=== PATIENT | male | born 1975 | race Two or more races ===

== ENCOUNTER → 2018-01-13 | Outpatient (CLI) | payer BC | LOC: FCPNEURO 21:30 | PROVIDERS: ATTEND Student in an Organized Health Care Education/Training Program | DX: G47.33 Obstructive sleep apnea (adult) (pediatric) (principal) ==

== ENCOUNTER → 2018-02-03 | Outpatient (CLI) | payer BC | LOC: FIMAGING 17:27 | PROVIDERS: ATTEND Family Medicine | DX: M54.5 Low back pain (principal); M54.6 Pain in thoracic spine ==

== ENCOUNTER → 2018-11-03 | Outpatient (CLI) | payer BC | LOC: FIMAGING 16:59 | PROVIDERS: ATTEND Physician Assistant Medical | DX: R07.89 Other chest pain (principal); K21.9 Gastro-esophageal reflux disease without esophagitis ==

== ENCOUNTER 2018-11-14 13:31 | Emergency (ER) | payer BC ==
[2018-11-14] MEDS ORDERED: LORazepam 2 MG/ML INJ IVP ONE (14:00)
[2018-11-14 14:04] LABS: PLATELET COUNT 295 10^3/uL (150-400)
--- NOTE | 2018-11-14 14:59 | EDPHY ---
H & P Time Seen by Provider: 11/14/18 13:59 HPI/ROS: HPI Chest tightness, tingling in hands. 43-year-old male by private vehicle. This patient reports over the last 2 weeks he has experienced intermittent episodes of chest tightness and tingling in both hands. Reports that he has been under some stress lately. He has a big moved coming up in early January to the [place]. He denies any history of coronary artery disease. He does not smoke. No history of diabetes. No history of hypertension. He does not use any IV drugs or street drugs. Specifically no cocaine or methamphetamine. He does not smoke cigarettes. He states that his father did have heart disease. ROS: Constitutional: No fever, no chills. As above. Eyes: No discharge. No changes in vision. ENT: No sore throat. No nasal congestion or rhinorrhea. Respiratory: No cough. No shortness of breath. Cardiac: As above, no palpitations. Gastrointestinal: No abdominal pain, no vomiting, no diarrhea. Genitourinary: No hematuria. No dysuria or increased frequency with urination. Musculoskeletal: No back pain. No neck pain. No myalgias or arthralgias. Skin: No rashes. Neurological: No headache. As above. Past medical history: Asthma. He takes still tele prime for depression. Social history: Drinks alcohol socially. Here by himself. Nonsmoker. As above. Physical Exam: General Appearance: Alert, initially anxious, but not in distress. This patient is responding to questions appropriately and in full sentences. This patient appears well-hydrated and well-nourished. Eyes: Pupils equal and round no pallor or injection. No lid edema, erythema or injection. Respiratory: There are no retractions, lungs are clear to auscultation with good air movement bilaterally. Cardiovascular: Regular rate and rhythm. No murmur. Gastrointestinal: Abdomen is soft and nontender, no masses, bowel sounds normal. No focal tenderness at McBurney's point. No Cardozo sign. Neurological: Motor sensory function is grossly intact. Cranial nerves are normal. Gait is normal. Skin: Warm and dry, no rashes. Musculoskeletal: Neck is supple and nontender. Extremities are symmetrical. All joints range without pain or impingement. Psychiatric: No agitation. No depression. As above. Database: EKG: EKG time is 1:51 p.m.; EKG shows a narrow complex normal sinus rhythm with a ventricular rate of 60. Incomplete right bundle branch block and left anterior fascicular block. Findings consistent with early repolarization pattern. The AL, QRS, QT intervals are within normal limits. There are no ST-T wave changes indicative of ischemic or injury pattern. No evidence of right heart strain. Interpreted by me. Imaging: Chest x-ray AP and lateral; the cardiac mediastinal silhouette is unremarkable. No evidence of infiltrate or pneumothorax. No acute cardiopulmonary disease process. Interpreted by me. Procedures: Emergency department course: Triage vital signs reviewed. Patient was hypertensive. He was afebrile and vital signs were otherwise normal. The patient's presentation is consistent with an anxiety reaction. An IV was placed. He was placed on a teletypesetter monitor. EKG obtained and reviewed by myself. He was given 0.5 mg of IV Ativan. 3:00 p.m., patient re-evaluated. He is feeling much better at this time. Denies any symptoms. No chest pain or discomfort. No shortness of breath. On re-evaluation, blood pressure is 115/56, teletypesetter monitor shows a narrow complex sinus rhythm with ventricular rate of 58. Room air pulse oximetry 97%. He is low risk based on heart score. I feel that his chest discomfort is anxiety related. His presentation is not consistent with acute coronary syndrome/ cardiac etiology of chest pain. He feels comfortable going home at this time. He will go home with a sober ride. I will prescribe him a few Ativan tablets, 1 mg to be taken over the next few days at night to help him sleep. Follow-up and return to emergency department precautions reviewed with him. All of his questions were answered. He was discharged from the emergency department in good condition. Differential Diagnosis: The differential diagnosis on this patient includes but is not limited to anxiety reaction. Acute coronary syndrome, pulmonary embolism, aortic dissection, pericarditis, myocarditis, pneumonia, pneumothorax unlikely. This represents a partial list of diagnoses considered. These considerations are based on history, physical exam, past history, reassessment and diagnostic testing. Smoking Status: Never smoked Constitutional: Initial Vital Signs Temperature (C) 36.7 C 11/14/18 13:39 Heart Rate 66 11/14/18 13:39 Respiratory Rate 16 11/14/18 13:39 Blood Pressure 160/106 H 11/14/18 13:39 O2 Sat (%) 96 11/14/18 13:39 O2 Delivery Mode Room Air Allergies/Adverse Reactions: No Known Allergies Allergy (Unverified 11/14/18 13:38) Home Medications: Medication Instructions Recorded Ambien 11/14/18 Citalopram 11/14/18 LORazepam [Ativan] 1 mg PO HS PRN #5 tablet 11/14/18 Salol 3 500 Softgel 11/14/18 Propecia 11/14/18 Qvar 80 Redihaler (*) 11/14/18 Medical Decision Making - Diagnostics Imaging Results: Imaging Impressions Chest X-Ray 11/14/18 14:00 Impression: Stable x2 weeks. - Data Points Laboratory Results: Laboratory Results 11/14/18 13:55 11/14/18 13:55 11/14/18 11/14/18 11/14/18 14:00 13:55 13:55 WBC 7.40 10^3/uL 10^3/uL (3.80-9.50) RBC 5.17 10^6/uL 10^6/uL (4.40-6.38) Hgb 16.9 g/dL g/dL (13.7-17.5) Hct 46.8 % % (40.0-51.0) MCV 90.5 fL fL (81.5-99.8) MCH 32.7 pg pg (27.9-34.1) MCHC 36.1 g/dL g/dL (32.4-36.7) RDW 11.6 % % (11.5-15.2) Plt Count 295 10^3/uL 10^3/uL (150-400) MPV 9.3 fL fL (8.7-11.7) Neut % (Auto) 62.2 % % (39.3-74.2) Lymph % (Auto) 28.4 % % (15.0-45.0) Mccone % (Auto) 8.2 % % (4.5-13.0) Eos % (Auto) 0.4 % L % (0.6-7.6) Baso % (Auto) 0.5 % % (0.3-1.7) Nucleat RBC Rel Count 0.0 % % (0.0-0.2) Absolute Neuts (auto) 4.60 10^3/uL 10^3/uL (1.70-6.50) Absolute Lymphs (auto) 2.10 10^3/uL 10^3/uL (1.00-3.00) Absolute Monos (auto) 0.61 10^3/uL 10^3/uL (0.30-0.80) Absolute Eos (auto) 0.03 10^3/uL 10^3/uL (0.03-0.40) Absolute Basos (auto) 0.04 10^3/uL 10^3/uL (0.02-0.10) Absolute Nucleated RBC 0.00 10^3/uL 10^3/uL (0-0.01) Immature Gran % 0.3 % % (0.0-1.1) Immature Gran # 0.02 10^3/uL 10^3/uL (0.00-0.10) Sodium 139 mEq/L mEq/L (135-145) Potassium 3.9 mEq/L mEq/L (3.5-5.2) Chloride 107 mEq/L mEq/L (97-110) Carbon Dioxide 22 mEq/l mEq/l (22-31) Anion Gap 10 mEq/L mEq/L (6-14) BUN 12 mg/dL mg/dL (7-23) Creatinine 1.0 mg/dL mg/dL (0.7-1.3) Estimated GFR > 60 Glucose 110 mg/dL H mg/dL (70-100) Calcium 9.9 mg/dL mg/dL (8.5-10.4) POC Troponin I 0.00 ng/mL ng/mL (0.00-0.08) Medications Given: Discontinued Medications Lorazepam (Ativan Injection) 0.5 mg IVP EDNOW ONE Stop: 11/14/18 14:01 Last Admin: 11/14/18 14:09 Dose: 0.5 mg Point of Care Test Results: Chemistry 11/14/18 14:00 POC Troponin I 0.00 ng/mL ng/mL (0.00-0.08) Departure - Departure Disposition: Home, Routine, Self-Care Clinical Impression: Anxiety reaction, Chest discomfort Condition: Good Instructions: Chest Pain (ED), Anxiety (ED) Additional Instructions: Read and follow provided instructions. Follow-up with your primary care physician in 1-2 days for re-evaluation and further management of your anxiety, your primary care physician can refer you to a psychiatrist to help better manage her anxiety. Take 1 Ativan tablet at night as needed to help you sleep. Return to the emergency department for worsening symptoms, worsening chest pain , shortness of breath or other serious concerns. Referrals: JANNA WOOTEN PA-C [Other] - As per Instructions Prescriptions: LORazepam [Ativan] 1 mg PO HS PRN #5 tablet PRN Reason: Anxiety
--- NOTE | 2018-11-14 15:31 | CPEKG ---
Test Reason : OPEN Blood Pressure : / mmHG Vent. Rate : 060 BPM Atrial Rate : 060 BPM P-R Int : 186 ms QRS Dur : 108 ms QT Int : 432 ms P-R-T Axes : 052 251 054 degrees QTc Int : 432 ms Sinus rhythm Probable left atrial enlargement Incomplete RBBB and LAFB Probable right ventricular hypertrophy ST elev, probable normal early repol pattern Confirmed by Gely Tanner ([id number]) on 11/14/2018 3:30:43 PM Referred By: PHYSICIAN ED Confirmed By:Gely Tanner
[2018-11-14 15:33] VITALS: BP 130/94
== END 2018-11-14 15:33 | disposition home or self-care (01) ==
DX: F41.9 Anxiety disorder, unspecified (principal); R07.89 Other chest pain
CPT/HCPCS: 84484-ER; 96374; J2060

== ENCOUNTER → 2018-12-14 | Outpatient (CLI) | payer BC ==
[~2018-12-14] MED LIST: IOPAMIDOL (ISOVUE-300) 100 ML BTL ONE
== END ==
LOC: FIMAGING 15:57
PROVIDERS: ATTEND Physician Assistant Medical
DX: R07.9 Chest pain, unspecified (principal); R10.9 Unspecified abdominal pain; K59.00 Constipation, unspecified; J45.909 Unspecified asthma, uncomplicated; M51.36 Other intervertebral disc degeneration, lumbar region
CPT/HCPCS: Q9967